=== PATIENT | female | born 1970 | race Hispanic/Latino ===

== ENCOUNTER 2022-07-09 12:33 | Emergency (ER) | payer MEDICARE ==
[~2022-07-09 12:33] MED LIST: ATOR40TA71 PO; CALC-877 PO; CYCL10TA16 PO; DIVA500T2 PO; GLIM4TAB PO; INSU100V12 SQ; LIDOP TP; METF1000 PO; NAPR500T6 PO; QUET300T19 PO
[2022-07-09 13:06] LABS: BASOPHILS % (AUTO) 0.5 % (0.0-5.0); EOSINOPHILS % (AUTO) 0.7 % (0.0-8.0); HEMATOCRIT 46.7 % (36-48); LYMPHOCYTES % (AUTO) 25.7 % (21.0-51.0); MEAN CORPUSCULAR HGB CONC 32.3 g/dL (32.0-36.0); MEAN CORPUSCULAR VOLUME 86.6 fL (79-99); MONOCYTES % (AUTO) 6.4 % (3.0-13.0); NEUTROPHILS % (AUTO) 66.4 % (40.0-77.0); PLATELET COUNT (AUTO) 385 K/uL (130-400); RED BLOOD CELL COUNT(AUTO) 5.39 MIL/uL (4.00-5.50); RED CELL DISTRIBUTION WIDTH 15.6 % (11.0-15.5); WHITE BLOOD COUNT (AUTO) 9.7 K/uL (4.8-10.8)
[2022-07-09 13:24] LABS: CREATININE 0.7 mg/dL (0.5-1.5); POTASSIUM 4.3 mmol/L (3.5-5.1)
[2022-07-09] MEDS ORDERED: 0.9%NACL 1000ML 1,000 ML IV SCH (13:30)
[2022-07-09] MEDS ORDERED: ONDANSETRON 4MG INJ IV ONE ×2 (13:30→16:00)
[2022-07-09] MEDS ORDERED: KETOROLAC 15MG/ML VIAL (15MG/ML) IV ONE (13:30)
[2022-07-09 13:33] LABS: ALBUMIN 3.7 g/dL (3.5-5.0)
[2022-07-09] MEDS ORDERED: CIPR-278 PO (15:52)
[2022-07-09] MEDS ORDERED: LOPE2CAP PO (15:52)
[2022-07-09] MEDS ORDERED: ACETAMINOPHEN 500 MG TABLET PO ONE (16:00)
[2022-07-09 16:39] LABS: APPEARANCE,URINE CLOUDY (CLEAR); BILIRUBIN,URINE SMALL (NEGATIVE); COLOR,URINE YELLOW (YELLOW); GLUCOSE, URINE (UA) >=1000 mg/dL (NEGATIVE); KETONES,URINE 40 mg/dL (NEGATIVE); LEUKOCYTE ESTERASE ,URINE TRACE (NEGATIVE); NITRATE,URINE POSITIVE (NEGATIVE); OCCULT BLOOD,URINE NEGATIVE (NEGATIVE); PH,URINE 5.5 (5.0-8.0); PROTEIN,URINE NEGATIVE (NEGATIVE); UROBILINOGEN,URINE 0.2 mg/dL (0.2-1.0)
[2022-07-09 16:56] LABS: RBC,URINE 0-1 /HPF (0-1)
[2022-07-09 16:57] LABS: BACTERIA,URINE Few /HPF (None Seen); MUCUS,URINE Few LPF (None Seen); SQUAMOUS EPITHELIAL CELL,UR Few /HPF (0-2); TRICHOMONAS,URINE Rare /LPF (None Seen); YEAST,URINE BUDDING Rare /HPF (None Seen)
[2022-07-09 17:30] VITALS: BP 150/81
== END 2022-07-09 17:32 | disposition home or self-care (01) ==
LOC: EDH 12:33
DX: R19.7 Diarrhea, unspecified (principal); E86.0 Dehydration; R51.9 Headache, unspecified; R11.2 Nausea with vomiting, unspecified; E10.9 Type 1 diabetes mellitus without complications; Z20.822 Contact with and (suspected) exposure to COVID-19; F17.200 Nicotine dependence, unspecified, uncomplicated; Z79.1 Long term (current) use of non-steroidal anti-inflammatories (NSAID); Z79.899 Other long term (current) drug therapy; Z88.5 Allergy status to narcotic agent
CPT/HCPCS: 99284; 96374; 87426; 96375; 80053; 83690; 85025; 87077; 87088; 87186; 81001; 36415; 96376; J2405 ×2; J1885

== ENCOUNTER 2023-03-19 08:54 | Emergency (ER) | payer MEDICARE ==
[~2023-03-19] VITALS: Ht 157.5 cm; Wt 61.2 kg
[~2023-03-19 08:54] MED LIST changes: +CIPR-278 PO; +LOPE2CAP PO
[2023-03-19] MEDS ORDERED: KETOROLAC 15MG/ML VIAL (15MG/ML) IM ONE (10:00)
[2023-03-19 11:35] VITALS: BP 144/82
== END 2023-03-19 11:41 | disposition home or self-care (01) ==
LOC: EDH 08:54
DX: M54.2 Cervicalgia (principal); M54.12 Radiculopathy, cervical region; E11.9 Type 2 diabetes mellitus without complications; F17.200 Nicotine dependence, unspecified, uncomplicated; Z79.899 Other long term (current) drug therapy; Z88.5 Allergy status to narcotic agent
CPT/HCPCS: 99285; 72125; 73030; 72128; 96372; J1885